=== PATIENT | male | born 2005 | race Caucasian/White ===

== ENCOUNTER 2025-07-15 16:36 | Emergency (ER) | payer OTHER ==
[~2025-07-15] VITALS: Ht 175.3 cm; Wt 86.3 kg
[2025-07-15 20:55] LABS: ERYTHROCYTE SEDIMENTATION RATE 3 mm/hr (0-15)
[2025-07-15 21:12] LABS: BASO # 0.1 10^3/uL (0.0-0.2); BASO % 0.6 % (0.0-1.0); CK-MB VALUE MASS < 1.0 NG/ML (<3.6); EOS # 0.1 10^3/uL (0.0-0.5); EOS % 1.4 % (0.0-3.0); LYMPH # 4.5 10^3/uL (1.5-5.0); LYMPH % 49.2 % (24.0-44.0); MONO # 0.7 10^3/uL (0.0-0.8); MONO % 7.7 % (2.0-8.0); NEUTROPHILS # 3.7 10^3/uL (1.5-8.5); NEUTROPHILS % 41.1 % (36.0-66.0); PLATELET COUNT, AUTOMATED 348 10^3/uL (150-450)
[2025-07-15 21:13] LABS: CALCIUM LEVEL 9.9 MG/DL (8.5-10.1); CARBON DIOXIDE LEVEL 26 MMOL/L (20-31); CHLORIDE LEVEL 105 MMOL/L (98-107); CREATININE FOR GFR 0.85 MG/DL (0.70-1.30); GLOMERULAR FILTRATION RATE > 90.0 (>60); POTASSIUM SERUM 4.1 MMOL/L (3.5-5.1); SODIUM LEVEL 142 MMOL/L (136-145)
[2025-07-15 21:15] LABS: FREE T4 1.24 NG/DL (0.83-1.43)
[2025-07-15] MEDS ORDERED: ISOVUE-370 76% 100 ML VIAL As Ordered ONE (21:16)
[2025-07-15 21:22] LABS: CPK CREATINE PHOSPHOKINASE 63 U/L (46-171)
[2025-07-15 22:32] VITALS: BP 133/73; TEMP 97.2; O2SAT 97
== END 2025-07-15 22:44 | disposition home or self-care (01) ==
LOC: M ED 16:36
DX: R07.89 Other chest pain (principal)
CPT/HCPCS: 71275; 80048; 82550; 82553; 84439; 84443; 84484; 85025; 85652; 93005; 93041; 94760; 99285; Q9967